=== PATIENT | male | born 1990 | race African-American/Black ===

== ENCOUNTER 2020-01-07 11:17 | Emergency (ER) | payer SELFPAY ==
[2020-01-07 11:22] VITALS: BP 127/76
--- NOTE | 2020-01-07 12:11 | ER Document Report ---
HPI - HPI Patient complains to provider of: Note for employer Time Seen by Provider: 01/07/20 12:04 Onset: Other - 2 weeks Onset/Duration: Persistent Pain Level: 1 Context: Patient states that he fractured his hand 2 weeks ago punching a trailer. Patient states that he needs a note saying he can go back to work. Patient did not follow-up with orthopedics. Patient has an ulnar gutter type splint although reports fracture to the second metacarpal. Patient is right-hand dominant. Patient denies any pain symptoms. Exacerbated by: Movement Relieved by: Denies Similar symptoms previously: No Recently seen / treated by doctor: Yes - ROS ROS below otherwise negative: Yes Systems Reviewed and Negative: Yes All other systems reviewed and negative - NEURO Neurology: DENIES: Weakness - MUSCULOSKELETAL Musculoskeletal: REPORTS: Extremity pain, Swelling - DERM Skin Color: Normal Skin Problems: None Past Medical History - General Information source: Patient - Social History Smoking Status: Never Smoker Chew tobacco use (# tins/day): No Frequency of alcohol use: Occasional Drug Abuse: None Occupation: Foodservice Family History: Reviewed & Not Pertinent - Medical History Medical History: Negative Surgical Hx: Negative Vertical Provider Document - CONSTITUTIONAL Agree With Documented VS: Yes Exam Limitations: No Limitations General Appearance: WD/WN, No Apparent Distress - HEENT HEENT: Atraumatic, Normocephalic - NECK Neck: Normal Inspection, Supple - RESPIRATORY Respiratory: Breath Sounds Normal, No Respiratory Distress - CARDIOVASCULAR Cardiovascular: Regular Rate, Regular Rhythm Pulses: Normal: Radial - BACK Back: Normal Inspection - MUSCULOSKELETAL/EXTREMETIES Musculoskeletal/Extremeties: MAEW, Edema - Edema to the right second metacarpal, decrease in range of motion to the right second finger - NEURO Level of Consciousness: Awake, Alert, Appropriate Motor/Sensory: No Sensory Deficit - DERM Integumentary: Warm, Dry, No Rash Course - Vital Signs Vital signs: Temp Pulse Resp BP Pulse Ox 98.3 F 53 L 14 127/76 H 99 01/07/20 11:21 01/07/20 11:21 01/07/20 11:21 01/07/20 11:21 01/07/20 11:21 - Diagnostic Test Radiology reviewed: Image reviewed, Reports reviewed Procedures - Immobilization Right Hand Pre-Proc Neuro Vasc Exam: Normal Immobilizer type: Other - Teardrop Performed by: PCT Post-Proc Neuro Vasc Exam: Normal Alignment checked and good: Yes Discharge - Discharge Clinical Impression: Metacarpal bone fracture Qualifiers: Encounter type: initial encounter Metacarpal bone: second Fracture type: closed Metacarpal location: unspecified portion of metacarpal Fracture alignment: displaced Laterality: right Qualified Code(s): S62.300A - Unspecified fracture of second metacarpal bone, right hand, initial encounter for closed fracture Condition: Stable Disposition: HOME, SELF-CARE Instructions: Fracture ([facility]), Ice & Elevation ([facility]), Splint Precautions ([facility]) Additional Instructions: Return immediately for any new or worsening symptoms Followup with your primary care provider, call tomorrow to make a followup appointment Follow-up with orthopedic hand specialist, call Wednesday for an appointment Forms: Restricted Release Referrals: KEVIN RODAS, [ACTIVE STAFF] - Follow up as needed
--- NOTE | 2020-01-07 12:56 | RADIOLOGY REPORT (SQ) ---
EXAM DESCRIPTION: HAND RIGHT 3 VIEWS IMAGES COMPLETED DATE/TIME: 01/07/2020 11:37 am REASON FOR STUDY: r hand 2nd MC pain, hx fx 2 wk ago COMPARISON: None. EXAM PARAMETERS: NUMBER OF VIEWS: Three views. TECHNIQUE: AP, lateral and oblique radiographic images acquired of the right hand. LIMITATIONS: None. FINDINGS: MINERALIZATION: Normal. BONES: There is an acute impacted fracture at the distal metaphysis 2nd digit metacarpal. No signifi cant angulation although there is impaction of the fracture fragments. No healing callus formation. No involvement of the joint space. No other fracture, lytic or blastic bone lesion. JOINTS: No effusions. SOFT TISSUES: No soft tissue swelling. No foreign body. OTHER: No other significant finding. IMPRESSION: Acute impacted fracture distal metaphysis 2nd digit metacarpal. TECHNICAL DOCUMENTATION: JOB ID: [id number] [employer]- All Rights Reserved Reading location - IP/workstation name: [id number]
== END 2020-01-07 13:39 | disposition home or self-care (01) ==
LOC: ER 11:17
PROC: 2W3CX1Z Immobilization of Right Lower Arm using Splint (ICD-10-PCS; principal; 2020-01-07)
DX: S62.300D Unspecified fracture of second metacarpal bone, right hand, subsequent encounter for fracture with routine healing (principal); R60.0 Localized edema; W22.01XD Walked into wall, subsequent encounter
CPT/HCPCS: 99283

== ENCOUNTER 2020-08-04 15:23 | Emergency (ER) | payer SELFPAY ==
--- NOTE | 2020-08-04 16:12 | RADIOLOGY REPORT (SQ) ---
EXAM DESCRIPTION: SOFT TISSUE NECK IMAGES COMPLETED DATE/TIME: 08/04/2020 3:56 pm REASON FOR STUDY: dysphagia COMPARISON: None. NUMBER OF VIEWS: Two views. TECHNIQUE: AP and lateral radiographic image of the soft tissues of the neck. LIMITATIONS: None. FINDINGS: EPIGLOTTIS: Normal. Contour normal. Aryepiglottic folds normal. PREVERTEBRAL SOFT TISSUES: Normal. No soft tissue swelling. SUBGLOTTIC AREA: Normal. No narrowing. RETROPHARYNGEAL SPACE: Normal. No soft tissue masses. BONES: No significant findings. LUNG APICES: Normal. OTHER: No radiopaque foreign body. No other significant finding. IMPRESSION: NEGATIVE STUDY OF THE SOFT TISSUES OF THE NECK. TECHNICAL DOCUMENTATION: JOB ID: [id number] [place]-72 2010 [employer]- All Rights Reserved Reading location - IP/workstation name: [email or web address]
--- NOTE | 2020-08-04 16:47 | RADIOLOGY REPORT (SQ) ---
EXAM DESCRIPTION: U/S THYROID/SFT TISS HD NECK IMAGES COMPLETED DATE/TIME: 08/04/2020 3:30 pm REASON FOR STUDY: neck swelling dysphagia COMPARISON: Soft tissue neck radiograph, same date. TECHNIQUE: Dynamic and static ho-scale images acquired of the thyroid gland. Selected additional c olor/power Doppler images recorded. All images stored to PACS. LIMITATIONS: None. FINDINGS: RIGHT LOBE: Normal size. Homogeneous echotexture. No cystic or solid masses. LEFT LOBE: Normal size. Homogeneous echotexture. No cystic or solid masses. ISTHMUS: Normal size. Homogeneous echotexture. No cystic or solid masses. OTHER: No other significant finding. IMPRESSION: NORMAL THYROID ULTRASOUND. TECHNICAL DOCUMENTATION: JOB ID: [id number] 2010 [employer]- All Rights Reserved Reading location - IP/workstation name: [email or web address]
--- NOTE | 2020-08-04 17:06 | ER Document Report ---
HPI - HPI Patient complains to provider of: throat pain/swelling Time Seen by Provider: 08/04/20 15:30 Pain Level: 1 Context: 29-year-old male with no previous medical problems presents to the emergency room complaining of throat pain, neck swelling, and difficulty swallowing that started 2 days ago. Patient states for several years he will pull on his Reyes apple as he feels it is out of place. States he did it 2 days ago while drinking alcohol and now he is having increasing pain with swelling and difficulty swallowing. Denies any nausea, vomiting, no fevers. States he was seen earlier today at [facility] and had a "negative CT of the neck". States symptoms have gotten progressively worse. Does also admit to the use of occasional cocaine and ecstasy and marijuana which he states he did yesterday. Associated Symptoms: None Exacerbated by: Other - Swallowing Relieved by: Denies Similar symptoms previously: Yes - States he has a long history of feeling like his Moy's apple is out of mateus Recently seen / treated by doctor: No - ROS Systems Reviewed and Negative: Yes All other systems reviewed and negative - CONSTITUTIONAL Constitutional: DENIES: Fever, Chills - EENT EENT: REPORTS: Sore Throat Notes: Dysphagia, neck swelling - NEURO Neurology: DENIES: Headache, Weakness - CARDIOVASCULAR Cardiovascular: DENIES: Chest pain - RESPIRATORY Respiratory: DENIES: Trouble Breathing, Coughing - DERM Skin Color: Normal Skin Problems: None Past Medical History - General Information source: Patient - Social History Smoking Status: Current Every Day Smoker Frequency of alcohol use: Daily Drug Abuse: Cocaine, Marijuana, Other Family History: Reviewed & Not Pertinent Vertical Provider Document - CONSTITUTIONAL Agree With Documented VS: Yes Exam Limitations: No Limitations General Appearance: Moderate Distress - INFECTION CONTROL TRAVEL OUTSIDE OF THE [place] IN LAST 30 DAYS: No - HEENT HEENT: Atraumatic, Normal ENT Exam, Normocephalic. negative: Pharyngeal Exudate, Pharyngeal Tenderness, Pharyngeal Erythema, Tympanic Membrane Red, Tympanic Membrane Bulging - NECK Neck: Supple. negative: Lymphadenopathy-Left, Lymphadenopathy-Right Notes: Mild anterior swelling of the neck without thyromegaly. Patient is speaking in full sentences. Able to handle his own secretions. - RESPIRATORY Respiratory: Breath Sounds Normal, No Respiratory Distress - CARDIOVASCULAR Cardiovascular: No Murmur, Tachycardia - MUSCULOSKELETAL/EXTREMETIES Musculoskeletal/Extremeties: FROM - NEURO Level of Consciousness: Awake, Alert, Appropriate Motor/Sensory: No Motor Deficit, No Sensory Deficit - DERM Integumentary: Warm, Dry, No Rash Course - Re-evaluation Re-evalutation: 08/04/20 17:01 Vital signs have improved. Patient is resting comfortably he is in no acute distress at this time. Reviewed ultrasound and x-ray results with patient. He is able to tolerate p.o. fluids without difficulty. Talking in full sentences. Handling his own secretions. Counseled the importance of an outpatient follow- up with an market research associate if not improving in the next 2 to 3 days. On-call physician will be provided. Can take Tylenol and or Motrin as needed for pain. Patient was given strict return to the emergency room guidelines. Return for any new or worsening symptoms. All questions were answered. Patient verbalized understanding and agrees with plan of care. 08/04/20 17:26 - Vital Signs Vital signs: Temp Pulse Resp BP Pulse Ox 97.8 F 108 H 20 142/104 H 100 08/04/20 15:34 08/04/20 15:34 08/04/20 15:34 08/04/20 15:34 08/04/20 15:34 - Laboratory Results Critical Laboratory Results Reviewed: No Critical Results - Radiology Results Critical Radiology Results Reviewed: No Critical Results Discharge - Discharge Clinical Impression: Throat swelling, Throat pain Dysphagia Qualifiers: Dysphagia type: unspecified Qualified Code(s): R13.10 - Dysphagia, unspecified Condition: Stable Disposition: HOME, SELF-CARE Instructions: Dysphagia ([facility]) Additional Instructions: Push fluids, Tylenol and or Motrin as needed for pain. Follow-up with market research associate as discussed if not improving in 2 to 3 days. Return to the emergency room for any new or worsening symptoms. Referrals: SULMA YOST DO [ASSOCIATE] - Follow up as needed
[2020-08-04 17:19] VITALS: BP 140/80
== END 2020-08-04 17:08 | disposition home or self-care (01) ==
LOC: ER 15:23
DX: R07.0 Pain in throat (principal); R22.1 Localized swelling, mass and lump, neck; R13.10 Dysphagia, unspecified; F14.10 Cocaine abuse, uncomplicated; F19.10 Other psychoactive substance abuse, uncomplicated; F12.10 Cannabis abuse, uncomplicated; F17.200 Nicotine dependence, unspecified, uncomplicated
CPT/HCPCS: 70360; 76536; 99284

== ENCOUNTER 2020-08-04 23:17 | Emergency (ER) | payer SELFPAY ==
--- NOTE | 2020-08-05 00:05 | ER Document Report ---
ED Medical Screen (RME) - General Chief Complaint: Abdominal Pain Stated Complaint: THROAT ISSUE Time Seen by Provider: 08/04/20 23:51 Notes: Patient is a 29-year-old male presents emergency department with abdominal pain and feeling like his throat is closing. He was seen here in the emergency department earlier and had a soft tissue neck ultrasound, which was normal. He also went to [facility] where he had a, "normal CT neck." Say he feels throat was closing. According to the visitor with him, he has not slept over the last couple days. States that he also developed some abdominal cramping and feels "bloated." Exam: Patent airway. I have greeted and performed a rapid initial assessment of this patient. A comprehensive ED assessment and evaluation of the patient, analysis of test results and completion of medical decision making process will be conducted by an additional ED providers. TRAVEL OUTSIDE OF THE [place] IN LAST 30 DAYS: No - Related Data Allergies/Adverse Reactions: No Known Allergies Allergy (Verified 08/04/20 15:33) Past Medical History - Social History Chew tobacco use (# tins/day): No Frequency of alcohol use: Social Drug Abuse: Marijuana Physical Exam - Vital signs Vitals: Temp Pulse Resp BP Pulse Ox 97.5 F 81 17 110/91 H 99 08/04/20 23:25 08/04/20 23:25 08/04/20 23:25 08/04/20 23:25 08/04/20 23:25 Course - Vital Signs Vital signs: Temp Pulse Resp BP Pulse Ox 97.5 F 81 17 110/91 H 99 08/04/20 23:25 08/04/20 23:25 08/04/20 23:25 08/04/20 23:25 08/04/20 23:25
[2020-08-05 00:20] LABS: ABSOLUTE BASOPHILS # (AUTO) 0.1 10^3/uL (0.0-0.2); ABSOLUTE EOSINOPHILS # (AUTO) 0.3 10^3/uL (0.0-0.6); ABSOLUTE LYMPHOCYTES (AUTO) 2.7 10^3/uL (0.5-4.7); ABSOLUTE MONOCYTES (AUTO) 1.1 10^3/uL (0.1-1.4); ABSOLUTE NEUT (AUTO) 4.5 10^3/uL (1.7-8.2); BASOPHILS % (AUTO) 0.8 % (0-2); EOSINOPHILS % (AUTO) 3.1 % (0-6); HEMATOCRIT 42.1 % (37.9-51.0); HEMOGLOBIN 14.1 g/dL (13.5-17.0); LYMPHOCYTES % (AUTO) 31.6 % (13-45); MEAN CORPUSCULAR HEMOGLOBIN 27.4 pg (27.0-33.4); MEAN CORPUSCULAR HGB CONC 33.5 g/dL (32.0-36.0); MEAN CORPUSCULAR VOLUME 82 fl (80-97); MONOCYTES % (AUTO) 12.8 % (3-13); PLATELET COUNT 220 10^3/uL (150-450); RED BLOOD COUNT 5.14 10^6/uL (4.35-5.55); RED CELL DISTRIBUTION WIDTH 13.3 % (11.5-14.0); SEGMENTED NEUTROPHILS % (AUTO) 51.7 % (42-78); TOTAL CELLS COUNTED % (AUTO) 100 %; WHITE BLOOD COUNT 8.7 10^3/uL (4.0-10.5)
[2020-08-05 00:49] LABS: ALBUMIN 4.8 g/dL (3.5-5.0); ANION GAP 10 (5-19); ASPARTATE AMINO TRANSFERASE 46 U/L (17-59); BILIRUBIN,DIRECT 0.2 mg/dL (0.0-0.4); BILIRUBIN,TOTAL 1.6 mg/dL (0.2-1.3); BLOOD UREA NITROGEN 13 mg/dL (7-20); CALCIUM 9.9 mg/dL (8.4-10.2); CARBON DIOXIDE 29 mmol/L (22-30); CHLORIDE 92 mmol/L (98-107); GLUCOSE 106 mg/dL (75-110); POTASSIUM 3.5 mmol/L (3.6-5.0)
[2020-08-05 00:50] LABS: ALKALINE PHOSPHATASE 78 U/L (38-126)
--- NOTE | 2020-08-05 00:51 | RADIOLOGY REPORT (SQ) ---
EXAM DESCRIPTION: XR ABDOMEN 1 VIEW (KUB) COMPLETED DATE/TME: 08/05/2020 00:31 CLINICAL HISTORY: 29 years, Male, abdominal pain COMPARISON: None. NUMBER OF VIEWS: 2 TECHNIQUE: AP abdomen LIMITATIONS: None. FINDINGS: The bowel gas pattern is nonspecific. Evaluation for free air limited on a supine view. Abundant stool in the colon. IMPRESSION: Abundant stool in the colon copyright 2011 [employer]- All Rights Reserved
[2020-08-05] MEDS ORDERED: MAGNESIUM CITRATE 296 ML BOTTLE PO ONE (03:23)
--- NOTE | 2020-08-05 03:27 | ER Document Report ---
ED GI/ - General Chief Complaint: Abdominal Pain Stated Complaint: THROAT ISSUE Time Seen by Provider: 08/04/20 23:51 Primary Care Provider: [facility] [Provider Group] - Follow up as needed [facility] [Provider Group] - Follow up as needed [facility] [Provider Group] - Follow up as needed [facility] [Provider Group] - Follow up as needed Mode of Arrival: Ambulatory Information source: Patient Notes: 49-year-old male presented to ED for complaint of abdominal pain and feeling like his throat is closing up. He states he did go to the emergency room yesterday and had a soft tissue old neck ultrasound which was normal and so then he went to [facility] had a CT of the neck which was normal so he came back to the e mergetxy room here because he could not sleep and his throat felt like it was closing in his abdomen hurt with cramping and bloating. Patient was seen in triage and had KUB ordered before I saw him. KUB showed abundant stool in the colon. Patient was given mag citrate in the emergency room as well as Gatorade for his sodium level. He was instructed please to use MiraLAX 1-2 times a day for his constipation. Constitutional: Negative for fever. HENT: States he felt like his throat was closing up and was seen multiple times with multiple imaging and none showed any airway compromise. Eyes: Negative for visual changes. Cardiovascular: Negative for chest pain. Respiratory: Negative for shortness of breath. Gastrointestinal: And of abdominal pain and bloating. He did have hyperactive bowel sounds. Genitourinary: Negative for dysuria. Musculoskeletal: Negative for back pain. Skin: Negative for rash. Neurological: Negative for headaches, weakness or numbness. 10 point ROS negative except as marked above and in HPI. VITAL SIGNS: Within normal limits. GENERAL: No acute distress, non-toxic appearance. HEAD: Normal with no signs of head trauma. EYES: PERRLA, EOMI, conjunctiva normal, no discharge. EARS: Hearing grossly intact. NOSE: Normal. THROAT: Oropharynx is normal. NECK: Normal range of motion, no tenderness, supple, no lymphadenopathy, No adenopathy, no JVD. CHEST: Clear breath sounds bilaterally. No wheezes, rales, or rhonchi. CARDIAC: Regular rate and rhythm. S1 and S2, without murmurs, gallops, or rubs. VASCULAR: No Edema. Peripheral pulses normal and equal in all extremities. ABDOMEN: Generalized abdominal tenderness with soft abdomen, no masses or pulsatile masses. GASTROINTESTINAL: Hyperactive bowel sounds GENITOURINARY: Normal, No tenderness LYMPATHTIC: No lymphadenopathy noted. MUSCULOSKELETAL: Good range of motion of all major joints. Extremities without clubbing, cyanosis or edema. NEUROLOGICAL: Alert and oriented x 3. No focal sensory or strength deficits. Speech normal. Follows commands appropriately. PSYCHIATRIC: Normal Affect, judgement and mood. SKIN: Normal appearance with no rashes or lesions. TRAVEL OUTSIDE OF THE [place] IN LAST 30 DAYS: No - HPI Patient complains to provider of: Abdominal pain - States he feels bloated cramping and is felt like his throat was closing for 2 days Onset: Other - See HPI Timing/Duration: Persistent Quality of pain: Cramping, Other - Bloated feeling Severity at maximum: Moderate Severity in ED: Moderate Pain Level: 3 Location: Other - Generalized abdomen bloating Associated symptoms: Other - Feeling of bloating and cramping, felt like throat was closing Exacerbated by: Denies Relieved by: Denies Similar symptoms previously: Yes Recently seen / treated by doctor: Yes - Related Data Allergies/Adverse Reactions: No Known Allergies Allergy (Verified 08/04/20 15:33) Past Medical History - General Information source: Patient - Social History Smoking Status: Current Every Day Smoker Cigarette use (# per day): Yes - Half pack a day Chew tobacco use (# tins/day): No Smoking Education Provided: Yes - 3 min Frequency of alcohol use: Social Drug Abuse: Marijuana Lives with: Spouse/Significant other Family History: Reviewed & Not Pertinent Patient has suicidal ideation: No Patient has homicidal ideation: No - Past Medical History Cardiac Medical History: Reports: None Pulmonary Medical History: Reports: None EENT Medical History: Reports: None Neurological Medical History: Reports: None Endocrine Medical History: Reports: None Renal/ Medical History: Reports: None Malignancy Medical History: Reports None GI Medical History: Reports: None Musculoskeletal Medical History: Reports None Skin Medical History: Reports None Psychiatric Medical History: Reports: None Traumatic Medical History: Reports: None Infectious Medical History: Reports: None Surgical Hx: Negative Past Surgical History: Reports: None - Immunizations Immunizations up to date: No Hx Diphtheria, Pertussis, Tetanus Vaccination: No Physical Exam - Vital signs Vitals: Temp Pulse Resp BP Pulse Ox 97.5 F 81 17 110/91 H 99 08/04/20 23:25 08/04/20 23:25 08/04/20 23:25 08/04/20 23:25 08/04/20 23:25 Course - Vital Signs Vital signs: Temp Pulse Resp BP Pulse Ox 97.6 F 85 14 120/79 100 08/05/20 03:35 08/05/20 03:35 08/05/20 03:35 08/05/20 03:35 08/05/20 03:35 - Laboratory Results Result Diagrams: 08/05/20 00:10 08/05/20 00:10 Laboratory Results Interpreted: 08/05/20 00:10 Sodium 131.1 L Potassium 3.5 L Chloride 92 L Total Bilirubin 1.6 H Critical Laboratory Results Reviewed: No Critical Results - Radiology Results Critical Radiology Results Reviewed: No Critical Results Discharge - Discharge Clinical Impression: Abdominal pain Qualifiers: Abdominal location: generalized Qualified Code(s): R10.84 - Generalized abdominal pain Constipation Qualifiers: Constipation type: unspecified constipation type Qualified Code(s): K59.00 - Constipation, unspecified Condition: Stable Disposition: HOME, SELF-CARE Additional Instructions: ABDOMINAL PAIN: There are many causes of abdominal pain. Pain can mean a serious problem requiring surgery (such as appendicitis). It can also be an innocent problem that goes away on its own (such as a viral infection). Often, time must pass to determine the cause of pain. The physician does not feel that hospitalization is necessary, at present. Things may change within the next 24 hours. Call the doctor or come back for re-examination if any problems occur, such as: (1) Pain that becomes more severe, steady, or becomes concentrated in one specific area. Also, pain that is more severe with movement or coughing. (2) Vomiting that persists or becomes more frequent. (3) Blood in the vomitus, urine, or bowel movements. Blood in the stool may have a tarry or black appearance. (4) Shaking chills or fever greater than 100 degrees F. (5) The abdomen becomes more distended or swollen. (6) Bowel movements cease. (7) Failure to improve as expected. NORMAL EXAM AND WORKUP: At this time, your examination and workup show no significant abnormality. No significant abnormal physical findings are noted. All laboratory, EKG, and imaging (x-ray, CT scans, ultrasound) studies that were ordered show no significant abnormality. Although your examination and all studies that were ordered showed no significant abnormal finding, there are no examinations and no studies that are 100% accurate. There is always the possibility that some abnormality could exist and not be detected with physical examination or within the limits and capabilities of laboratory and other studies. You should return or follow up as you were instructed on your visit today for further evaluation if your symptoms do not resolve. CONSTIPATION: Constipation is a common problem. It is especially likely as you get older. Constipation is a common cause of abdominal pain, but sometimes causes no symptoms at all. Causes of constipation include certain medications, dehydration, diets, inactivity, and low-fiber intake. Rarely, it can be a symptom of underlying disease. The physician has evaluated you for this. Avoid constipation by eating a diet high in fiber, fruits, and vegetables. Drink plenty of liquids. Get regular exercise. If possible, avoid constipating medicines like narcotic pain medication. Some vitamin tablets can cause constipation. Stool softeners may be needed for difficult cases. An excellent stool softener is Konsyl which is available at [facility], and [employer] drug [employer]. Just add a teaspoon to a glass of pineapple or orange juice daily or twice a day if needed. Laxatives are useful for occasional constipation. You should use them only when necessary. Too-frequent use can make your bowels dependent on them. Some over the counter laxatives available without prescription are: Milk of Magnesia, 1-2 tablespoons twice a day Dulcolax, 5 mg pill or 10 mg suppository. Citrate of Magnesia, 4-5 ounces a day for a day or two For acute constipation, Fleet's Enemas and Dulcolax suppositories are helpful. Chronic, care home use of laxatives or enemas is not a good idea. Your bowel may become dependant on them. You do not need to have a bowel movement every day. Many people do fine with a bowel movement every three or four days. You should call your doctor or return for re-evaluation if you pass blood in the stool, or if you develop fever or increasing abdominal pain. LAXATIVE: A laxative agent has been prescribed for your condition. This should result in passage of stool within 12 hours. Some mild intestinal cramping is common as the hard stool begins to move. You may have loose or runny stools for a short time. Contact your doctor if there is severe cramping, vomiting, or passage of blood. Return for further care if this medicine fails to improve your condition. FOLLOW-UP CARE: If you have been referred to a physician for follow-up care, call the physicians office for an appointment as you were instructed or within the next two days. If you experience worsening or a significant change in your symptoms, notify the physician immediately or return to the Emergency Department at any time for re-evaluation. Forms: Elevated Blood Pressure Referrals: [facility] [Provider Group] - Follow up as needed [facility] [Provider Group] - Follow up as needed [facility] [Provider Group] - Follow up as needed [facility] [Provider Group] - Follow up as needed
[2020-08-05 03:37] VITALS: BP 120/79
--- OUTSIDE RECORDS SUMMARY | 2020-08-07 09:17 | XMS REPORT ---
:1990 Author Organization [facility] [address] [place] [id number] Care Team Providers Name Role Phone US Allie MD Attending Clinician Unavailable MD Guido Lux Attending Clinician Unavailable MD Guido Lux Attending Clinician Unavailable Allergies, Adverse Reactions, Alerts This patient has no known allergies or adverse reactions. Medications Ordered Filled Start Stop Current Ordering Indication Dosage Frequency Signature Comments Components Medication Medication Date Date Medication? Clinician (SIG) Name Name No Known Yes Medications - 12:40: 32 traMADol 50 2019- No 50mg 50 mg = 1 mg oral 6-01 tab(s), tablet 02:29: PO, q4hr, 00 for pain, # 12 tab(s), 0 Refill(s), Pharmacy: [facility] #[id number], 166.37, cm, 12/11/19 1:54:00 EDT, Height, 55.7, kg, 12/11/19 1:54:00 EDT, Weight diclofenac 2019- No 75mg 75 mg = 1 sodium 75 6-01 tab(s), mg oral 02:29: PO, BID, # delayed 00 30 tab(s), release 0 tablet Refill(s), Pharmacy: [facility] #[id number], 166.37, cm, 12/11/19 1:54:00 EDT, Height, 55.7, kg, 12/11/19 1:54:00 EDT, Weight Problems This patient has no known problems. Procedures Procedure Date / Time Performed Performing Clinician Yeyo bonner pulse oximetry (PROC) 2020-07-01 00:00:00 Results This patient has no known results. Assessments Condition Name Status Diagnosis Date Treating Clinici an Risk of exposure to communicable Active 2020-07-01 19:3 0:19 disease Encounters Start End Encounter Admission Attending Care Care Encounter Date/Time Date/Time Type Type Clinicians Facility Department ID 2020-08-04 2020-08-04 E 1 [facility] Acute, [facility] [id number] 12:01:46 13:31:00 [facility] 680 2020-08-03 2020-08-03 E US Acute, [facility] [id number] 20:35:10 21:15:00 [facility] 680 2020-07-01 2020-07-01 [facility] [id number] 00:00:00 00:00:00 Baltazar, Immediate Immediate & [id number] [employer]: [facility], [place] [address], Ph. 2019-12-11 2019-12-11 E 1 [facility] 20 [id number] 01:43:49 02:42:00 Tin Lux 2019-07-31 2019-07-31 E 1 Tin Lux [facility] 20 [id number] 15:10:13 16:17:00 Tin Lux Payers Payer Name Policy Type Policy Number Effective Date Expiration D ate Social History Smoking Status Start Date Stop Date Former Smoker Heavy tobacco smoker (finding) 2020-08-04 12:40:42 2020-07-13 4 12:40:42 Social History Observation Description Sex Male Vital Signs Vital Name Observation Time Observation Value Comments Height 2020-07-01 00:00:00 69 [in_i] BMI (Body Mass Index) 2020-07-01 00:00:00 19.2 kg/m2 Body Weight 2020-07-01 00:00:00 130 [lb_av] Temperature Oral 2020-08-04 12:02:00 36.7 Connie Peripheral Pulse Rate 2020-08-04 12:02:00 117 /min Respiratory Rate 2020-08-04 12:02:00 18 /min Systolic Blood Pressure 2020-08-04 12:02:00 153 mm[Hg] Diastolic Blood Pressure 2020-08-04 12:02:00 98 mm[Hg] Peripheral Pulse Rate 2020-08-03 20:35:00 105 /min Respiratory Rate 2020-08-03 20:35:00 17 /min Systolic Blood Pressure 2020-08-03 20:35:00 126 mm[Hg] Diastolic Blood Pressure 2020-08-03 20:35:00 94 mm[Hg] Temperature Oral 2020-08-03 20:35:00 36.9 [facility] Discharge Instructions No data available for this sectionNo data available for this section1. Risk of exposure to communicable disease pulse oximetry (PROC) rapid SARS CoV 2 Ag, QL IA, respiratory specimen Discussion Note Virtual telemedicine time spent with patient was less than 10 mins, with >50% of that time spent counseling the patient, discussing the risk and benefits of treatment and family education. Follow up with PCP in 1 week or sooner for new/worsening symptoms. All pt. questions and concerns were addressed and answered. Pt. verbalized understanding and agreement of treatment plan. This was an Urgent Care Visit. Quality measures managed by PCP. Patient educational handouts: No information available.
== END 2020-08-05 03:52 | disposition home or self-care (01) ==
LOC: ER 23:17
DX: K59.00 Constipation, unspecified (principal); R10.84 Generalized abdominal pain; R09.89 Other specified symptoms and signs involving the circulatory and respiratory systems; R10.817 Generalized abdominal tenderness; F17.210 Nicotine dependence, cigarettes, uncomplicated; F12.10 Cannabis abuse, uncomplicated
CPT/HCPCS: 99284; 36415; 85025; 80053; 74018; J3490